=== PATIENT | male | born 1965 | race Caucasian/White ===

== ENCOUNTER 2016-04-27 12:25 | Inpatient (IN) | payer OTHER ==
[~2016-04-27] VITALS: Ht 177.8 cm; Wt 65.3 kg
--- NOTE | ~2016-04-27 | CON ---
[place], [place] REPORT OF CONSULTATION NAME: CHINO PINTO UNIT #: [id number] ROOM: 416 DOCTOR: MANDA CMGALLO BIRTHDATE: [birth year] DOS: 04/28/2016 REASON FOR CONSULTATION: Shortness of breath. HISTORY OF PRESENT ILLNESS: The patient is a 50-year-old gentleman, history of hypothyroidism, alcoholic gastritis, came to the Emergency Room with progressive shortness of breath for a few days and he was admitted to the hospital and Cardiology was consulted for further evaluation. He has history of alcoholic use, had recent upper endoscopy, showed alcoholic gastritis and some hyperplastic gastric polyps. He denies any palpitations/exertional chest pain. No PND, no orthopnea. No edema. No dizziness or syncope. No nausea, vomiting, diarrhea. No headache. No blurred vision or double vision. No hematuria or dysuria. No tingling, numbness, or weakness. His only complaint is mild exertional dyspnea. REVIEW OF SYSTEMS: Review of 8 systems negative. PAST MEDICAL HISTORY: 1. Hypothyroidism. 2. Alcoholic gastritis. 3. History of alcohol use. 4. Acne rosacea. SOCIAL HISTORY: The patient does not smoke, but does drink heavily, mostly beer. No illicit drug abuse. FAMILY HISTORY: Noncontributory. No family history of premature coronary artery disease or hypertension. ALLERGIES: Reviewed. HOME MEDICATIONS: Reviewed. PAST SURGICAL HISTORY: No history of major surgeries. PHYSICAL EXAMINATION: GENERAL: The patient is alert, oriented, in no acute distress. VITAL SIGNS: Stable. HEENT: Pupils are round and equal. No jaundice. Tongue was moist and pharynx was clear. NECK: Supple. No distended neck veins. No carotid bruit. CHEST: Symmetrical, nontender. LUNGS: Clear to auscultation bilaterally. HEART: Regular rhythm. No S3. Grade 1/6 systolic murmur. ABDOMEN: Benign, nontender. Bowel sounds normal. EXTREMITIES: Showed trace edema. SKIN: Warm and dry. No cyanosis, no clubbing. Distal pulses are palpable. NEUROLOGIC: The patient is alert and oriented. No focal neurologic deficit. RECTAL: Deferred. GENITOURINARY: Deferred. [place], [place] REPORT OF CONSULTATION NAME: CHINO PINTO UNIT #: [id number] ROOM: [facility] DOCTOR: MANDA CM,GALLO BIRTHDATE: [birth year] PSYCHIATRIC: The patient is alert, oriented with good mood and affect. REVIEW OF THE DIAGNOSTIC TESTS: The EKG rhythm strips and labs reviewed. IMPRESSION: 1. Mild exertional dyspnea, clinically no acute heart failure. 2. Hypothyroidism. 3. Multiple pulmonary nodules in the left upper lobe per CT scan. 4. Alcoholic gastritis. 5. Alcohol abuse. RECOMMENDATIONS: 1. We will schedule for exercise nuclear stress test to rule out underlying ischemia. 2. Check 2D echo for LV function and valvular function. Further recommendations will be based on his above tests. The patient was counseled to quit drinking. Thank you, Dr. Brewster, for asking us to evaluate the patient and we will follow the case along with you. GALLO HOLMAN MD CM:CONSTR:REPORT OF CONSULTATION 0809 04/29/16 1012 interface
--- NOTE | ~2016-04-27 | ST ---
[place], [place] EXERCISE STRESS TEST REPORT [facility] [id number] UNIT #: [id number] ROOM: 416 DOCTOR: MANDA CM,GALLO BIRTHDATE: [birth year] DOS: 04/29/2016 REASON FOR TEST: Chest pain. REFERRING PHYSICIAN: Dr. Rochelle Brewster. PHYSICAL EXAMINATION NECK: Supple. LUNGS: Clear anteriorly. HEART: Regular rhythm. PROTOCOL: Kelby protocol. Total stress time 6 minutes. Maximum heart rate 145, which is 86% of target heart rate, total mets 7.2 mets. Peak blood pressure 134/78, adequate response. Ramey treadmill score of +6. Symptoms: The patient is chest pain free. EKG: Resting EKG showed sinus rhythm. Stress EKG showed inferior leads T inversion. CONCLUSION: Clinically, the patient is chest pain free. EKG: There is T-wave inversion noted in the inferior leads. POST-STRESS COMPLICATIONS: None. GALLO HOLMAN MD CM:STRESS:EXERCISE STRESS TEST REPORT 1300 [id number] GALLO HOLMAN MD
--- NOTE | ~2016-04-27 | CON ---
[place], [place] REPORT OF CONSULTATION NAME: CHINO PINTO [facility] #: [id number] UNIT #: [id number] ROOM: 416 DOCTOR: LISBET GARCÍA MDAUTUMN BIRTHDATE: [birth year] DOS: 04/28/2016 PULMONARY CONSULTATION EVALUATION AND MANAGEMENT CONSULTATION REQUESTED BY: Dr. Rochelle Brewster. REASON FOR CONSULTATION: For assessment of symptoms of shortness of breath. HISTORY OF PRESENT ILLNESS: A 50-year-old white male who has presented to the hospital. The patient was complaining of shortness of breath, which was occurring at his work. The patient stated that he has been getting shortness of breath and not able to do his job for this patient because of shortness of breath. The patient came into the Emergency Room where he has been assessed. The patient had a CTA of the chest done for this patient as well on admission, which does not show evidence of pulmonary embolism. The patient stated shortness of breath essentially remains the same for the patient of yesterday. He denies any symptoms of acute chest pain. He has been noted with some symptoms of coughing with intermittent sputum expectoration. Denies any symptoms of wheezing. Denies any symptoms of edema or pain of the lower extremities. REVIEW OF SYSTEMS: CONSTITUTIONAL SYMPTOMS: Denies fatigue, tiredness, fever or chills. EYES: Denies any burning, redness, or tenderness. EARS, NOSE, AND THROAT SYMPTOMS: No sore throat, hoarseness, otalgia, postnasal drainage. CARDIOVASCULAR SYSTEM: Denies any anginal pain of the patient, palpitations, edema of the ankles or orthopnea. GASTROINTESTINAL SYMPTOMS: Denies nausea, vomiting, diarrhea, abdominal pain, hematemesis, melena, or hematochezia. SKIN: No lesions or rashes. GENITOURINARY SYMPTOMS: No dysuria, suprapubic pain, hematuria. MUSCULOSKELETAL SYMPTOMS: The patient denies any symptoms of acute joint pain, redness, or tenderness. CENTRAL NERVOUS SYSTEM: Denies syncopal episode, seizures, migraine headache, or diplopia. Remaining systems were reviewed with the patient, they were noted all negative. PAST MEDICAL HISTORY: The patient was noted, 1. Hypothyroidism. 2. History of acne rosacea. 3. Hyperplastic gastric polyp for this patient with alcoholic gastritis. SOCIAL HISTORY: The patient was noted nonsmoker, but has been noted with history of alcohol use, sometimes heavily. The patient stated he has not been drinking alcohol for the past 1 week. SURGICAL HISTORY: Essentially noted with upper endoscopy. [place], [place] REPORT OF CONSULTATION [id number] UNIT #: [id number] ROOM: [facility] DOCTOR: AUTUMN GUAJARDO MD BIRTHDATE: [birth year] FAMILY HISTORY: Mother at age of 7474 years old from complications of diabetes and dementia. The dad at age of 7474 years old approximately from unknown medical illness. HOME MEDICATIONS: Noted use of Synthroid, Protonix, and Carafate. PHYSICAL EXAMINATION: GENERAL: This is a 50-year-old male who has been currently noted to be awake and alert at the time of the assessment without any distress. Height was recorded as 5 feet 10 inches, weight of 144 pounds, BMI 20.6. VITAL SIGNS: Normal temperature recorded, respiratory rate of 18-20, heart rate 71-81, blood pressure 106/67-115/66. Intake 1000, output 900 mL, pulse oxygen saturation of the patient on room air was 100% saturation recorded this morning. HEENT: Examination shows head was atraumatic. Eyes nonicterus. NECK: Supple. CARDIOVASCULAR SYSTEM: S1, S2 audible. LUNGS: Noted clear of any wheezing or crackles. ABDOMEN: Flat, soft, nontender. Bowel sounds present. EXTREMITIES: Show no edema, clubbing or cyanosis. CENTRAL NERVOUS SYSTEM: The patient was noted without any gross focal deficit. Cranial nerves 2-12 intact. SKIN: No lesions or rashes. MUSCULOSKELETAL SYMPTOMS: No acute deformities. LABORATORY DATA: PT/PTT yesterday in the Emergency Room normal. CBC yesterday in the Emergency Room essentially noted as hemoglobin 13.3, hematocrit 37.5 minimally decreased, normal WBC count and platelet count. The differentials are noted 4.4%, eosinophils with the ordered differential. PT and PTT yesterday for this patient noted normal. CMP that was done yesterday for the patient noted normal BUN and creatinine, sodium 131. Remaining CMP for the patient was noted grossly normal. The chest x-ray of the patient that was done for the patient 1 view in the Emergency Room does not show any acute pulmonary abnormalities. CT of the chest of the patient was done yesterday for patient as well in the Emergency Room for patient does not show any evidence of pulmonary embolism or major pulmonary arteries. The lung parenchymal view for this patient was noted without any infiltration pleural fluid or finding of congestive heart failure. Scattered cluster of couple of millimeters nodule for the patient was noted in the left upper lobe for this patient as a cluster close to the subpleural distribution to the patient without any other abnormalities noted in the remaining lungs. There were no findings of centrilobular emphysema or other pathologies. IMPRESSION: 1. The patient who had been admitted to the hospital with symptoms of shortness of breath with exertion, etiology is unclear. History of alcohol use for the patient previously to exclude any underlying cardiac problems such as alcohol-induced cardiomyopathy for this patient, coronary artery disease and other remains a risk at his age. At this time, the patient will not be suspected with having any clinical assessment of the patient and physical examination consistent with chronic obstructive pulmonary disease and/or [place], [place] REPORT OF CONSULTATION [facility]: [facility]: [id number] UNIT #: [id number] ROOM: 416 DOCTOR: AUTUMN GUAJARDO MD BIRTHDATE: [birth year] bronchial asthma. 2. Incidental finding of small cluster of subcentimeter pulmonary nodules in the pleural distribution of the left lung for this patient, etiology is unclear, possibly noninfectious etiology for the patient could be considered with possibility of localized infection cannot be completely excluded in that area. PLAN OF TREATMENT: The patient will be recommended symptomatic management at this time. Outpatient assessment of the patient will be suggested after discharge. The nodule of the patient will be monitored with a repeat CT scan of the chest for this patient in approximately 6 months. No further workup to be initiated for the patient at this time during the current hospitalization. Usual care, other supportive therapy, plan of management and care. Thanks for allowing me to participate in the care of this patient. AUTUMN FRAUSTO MD CM:CONSTR:REPORT OF CONSULTATION 1306 04/28/16 2312 interface
--- NOTE | ~2016-04-27 | DS ---
[place], [place] DISCHARGE SUMMARY NAME: CHINO PINTO [facility] #: [id number] UNIT #: [id number] ROOM: 416 DOCTOR: LETICIA DOMINGO MD BIRTHDATE: [birth year] DOS: 04/29/2016 DIAGNOSES: 1. Precordial chest pain. 2. Exertional shortness of breath. 3. CT scan showing pulmonary nodules. He would need to be followed up as an outpatient. 4. Deconditioning from recent gastrointestinal illness. 5. Alcoholic gastritis. 6. Hyperplastic gastric polyps. 7. Hypothyroidism. 8. Acne rosacea. DISCHARGE MEDICATIONS: The patient's medications are the same as on admission. No new prescriptions were given. HOSPITAL COURSE: A 50-year-old presents with complaints of exertional shortness of breath and chest pain. Please refer to H and P for details. After admission, the patient was placed in a monitored floor. No arrhythmias were noted. Consultation with Dr. De Los Santos and Dr. Romero was obtained. The CT of the chest did not show any evidence of PE or pneumonia, but pulmonary nodules were noted. Dr. Romero is going to follow the patient up as an outpatient. The patient does not smoke. The patient also underwent a stress test and an echocardiogram. I do not have the results of the echo. The stress test results showed the patient does not have any reversible perfusion defects, and the patient should be able to go home today and follow up with PCP as an outpatient. The patient is encouraged not to drink any alcohol when discharged. LETICIA DOMINGO MD CM:OSORIO [phone] LETICIA DOMINGO MD 04/29/16 1101 interface
--- NOTE | ~2016-04-27 | WRIGHTHP ---
[place], [place] PATIENT HISTORY AND PHYSICAL EXAM NAME: CHINO PINTO [facility] #: [id number] UNIT #: [id number] ROOM: 416 DOCTOR: LETICIA DOMINGO MD BIRTHDATE: [birth year] DOS: 04/27/2016 HISTORY OF PRESENT ILLNESS: The patient is a 50-year-old patient with complaints of shortness of breath on exertion. The patient states that he has had a hard time walking at work without getting short of breath, so he decided to come into the Emergency Room, was evaluated with a negative CT of the chest because of his heavy alcohol abuse and possible coronary artery disease. The patient was admitted to the hospital. The patient, this morning, does not have any complaints other than continued shortness of breath. The patient denies having any chest pains or palpitations, does not have any abdominal pain, nausea, any emesis. Does not have any fever or chills. PAST MEDICAL HISTORY: Significant for: 1. Hypothyroidism. 2. Acne rosacea. 3. Alcoholic gastritis with hyperplastic gastric polyps where the biopsies were negative. MEDICATIONS: That he is on are levothyroxine 50, Protonix 40, and Carafate 1 g twice a day. SOCIAL HISTORY: Nonsmoker, does drink rather heavily at times. He has not had any alcohol for a week now. PHYSICAL EXAMINATION: GENERAL: He is awake and alert and oriented, evidence of severe acne rosacea on the face. VITAL SIGNS: Blood pressure is 101/64, pulse is 74, respirations 20, temperature 98.3. LUNGS: Diminished breath sounds. No wheezes, rales or rhonchi heard. HEART: Regular. ABDOMEN: Obese, soft, nontender. EXTREMITIES: Without any edema. LABORATORY DATA: CT of the chest shows pulmonary nodules about 6-7 mm in the left upper lobe, multiple, no PE was noted, no pneumonia is seen. Gallbladder shows no evidence of stones. The heart is normal in size. Chest x-ray was unremarkable. Lactic acid is normal. White blood cell count is 6.3, hemoglobin 13.3, hematocrit 37.5, platelets 301. Protime was normal. Comprehensive; glucose 85, BUN 8, creatinine 0.88, sodium 131, potassium 4.2, chloride 95, bicarbonate 23. C-reactive protein 0.60, myoglobin 32. CKs and troponins were normal. ASSESSMENT AND PLAN: 1. Exertional shortness of breath in a person who has had history of alcoholism. We will need to rule out coronary artery disease. Cardiology consultation will be obtained for a stress test this morning. 2. Exertional shortness of breath with CT showing pulmonary nodules. Dr. Romero has been consulted. The patient states that he never smoked. The patient does not have any evidence of bronchospasm, so no breathing treatments have been [place], [place] PATIENT HISTORY AND PHYSICAL EXAM [id number] #: [id number] ROOM: [facility] DOCTOR: LETICIA DOMINGO MD BIRTHDATE: [birth year] ordered. 3. Alcoholic gastritis. Continue medications. We will start him on a diet once the stress is done. LETICIA DOMINGO MD CM:HISPHYS:PATIENT HISTORY AND PHYSICAL EXAMINATION [id number] LETICIA DOMINGO MD 04/28/16 0859 interface
--- NOTE | ~2016-04-27 | PR ---
[place], [place] PROGRESS NOTE [id number] UN[facility] #: [id number] ROOM: 416 DOCTOR: LISBET GARCÍA MD,AUTUMN BIRTHDATE: [birth year] DOS: 04/29/2016 PULMONARY PROGRESS NOTE SUBJECTIVE: He has been noted asymptomatic without any acute new respiratory complaints. The patient had a cardiac stress test, which was completed yesterday as well. The patient was assessed by the Cardiology Services as well. The stress test of the patient was noted with normal exercise stress test. OBJECTIVE: VITAL SIGNS: Shows normal temperature, respiratory rate 18, heart rate 68, blood pressure ____. The pulse oxygen saturation on room air was 97% saturation. HEENT: Showed no acute change. NECK: Supple. CARDIOVASCULAR: S1, S2 audible. LUNGS: Noted clear without any wheezing or crackles. ABDOMEN: Soft, nontender. LABORATORY DATA: No new labs were done today. IMPRESSION: 1. The patient with subcentimeter bilateral pulmonary nodule, subpleural distribution, etiology unclear for this patient in the left upper lobe. 2. Shortness of breath of the patient, exact etiology cannot be clearly defined, but does not show any active wheezing or other problems. PLAN OF TREATMENT: The patient could be considered for home discharge with further outpatient comprehensive assessment for the respiratory status will be planned. The pulmonary nodule will be monitored as well. The patient could be seen in the office in the next 2-3 weeks postdischarge. AUTUMN FRAUSTO MD CM:PNTRANS [id number] AUTUMN GARCÍA MD 04/30/16 0237 interface
[~2016-04-27 12:25] MED LIST: CIPROFLOXACIN500 M4 PO; CLARITIN10 MG PO; COMPAZINE10 MG PO; DAYPRO600 M1 PO; LEVOTHYROXIN0.025 M1 PO; LEVOTHYROXIN0.025 MG PO; PANTOPRAZOLE SO40 MG PO; PROTONIX40 MG PO; ROBAXIN750 MG PO; SULFACETAMIDE TP; Synthroid,Levo50 MCG PO; VITAMIN B-11 TAB PO; VITAMIN D50000 I3 PO; ZITHROMAX Z PA250 MG PO
[2016-04-27] MEDS ORDERED: SEPTRA DS 800 M1 TAB PO (12:33)
[2016-04-27] MEDS ORDERED: CARAFATE1 GM/10 ML PO (12:34)
[2016-04-27 12:35] VITALS: BP 115/66
[2016-04-27 13:23] LABS: BASO # 0.1 10*3/uL (0.0-0.1); BASO % 2.2 % (0.0-1.0); EOS # 0.3 10*3/uL (0.0-0.4); EOS % 4.4 % (1.0-4.0); HEMATOCRIT 37.5 % (42.0-52.0); HEMOGLOBIN 13.3 g/dl (14.0-18.0); LYMPH # 1.4 10*3/uL (1.3-4.4); LYMPH % 22.4 % (27.0-41.0); MEAN CELL VOLUME 90.8 fl (80.0-94.0); MEAN CORPUSCULAR HGB 32.2 pg (27.0-31.0); MEAN CORPUSCULAR HGB CONC 35.5 g/dl (33.0-37.0); MEAN PLATELET VOLUME 9.3 fl (9.6-12.3); MONO # 0.7 10*3/uL (0.1-1.0); MONO % 11.5 % (3.0-9.0); NEUT # 3.8 10*3/uL (2.3-7.9); NEUT % 59.2 % (47.0-73.0); PLATELET COUNT AUTOMATED 301 10*3/uL (130-400); RED BLOOD COUNT 4.13 10*6/uL (4.50-5.90); RED CELL DISTRI WIDTH 11.7 % (0-14.5); WHITE BLOOD COUNT 6.3 10*3/uL (4.8-10.8)
[2016-04-27 13:34] LABS: PROTHROMBIN TIME 11.1 SECONDS (9.0-12.4)
[2016-04-27 13:41] LABS: ALBUMIN 3.4 gm/dl (3.1-4.5); ALKALINE PHOSPHATASE 56 U/L (45-117); BILIRUBIN, TOTAL 0.4 mg/dl (0.2-1.0); BUN 8 mg/dl (7-24); CARBON DIOXIDE 23 mmol/L (21-32); CHLORIDE 95 mmol/L (98-107); CPK 48 U/L (39-308); EST GLOM FILT AFRICAN AMERICAN > 60 ml/min; GLUCOSE 85 mg/dL (65-99); MAGNESIUM 2.2 mg/dL (1.5-2.1); POTASSIUM 4.2 mmol/L (3.5-5.1); SGOT/AST 16 IU/L (3-35); SGPT/ALT 30 U/L (12-78); SODIUM 131 mmol/L (136-145)
[2016-04-27 13:42] LABS: CKMB < 0.5 ng/ml (0.5-3.6); TROPONIN I < 0.015 ng/ml (<0.045)
[2016-04-27 15:29] VITALS: BP 100/56
[2016-04-27 17:20] VITALS: BP 101/60
[2016-04-27 20:00] VITALS: BP 109/69
[2016-04-28] VITALS: BP 101/64; BP 106/43
[2016-04-28 08:00] VITALS: BP 106/67
[2016-04-28 12:00] VITALS: BP 92/52
[2016-04-28 16:00] VITALS: BP 96/60
[2016-04-28 20:00] VITALS: BP 105/63
[2016-04-29] VITALS: BP 92/52
[2016-04-29 08:00] VITALS: BP 101/60
== END 2016-04-29 09:15 | disposition home or self-care (01) | DRG 313 ==
LOC: ED 12:25 → EDHOLD 15:08 → 4E 15:51
PROVIDERS: Emergency Medicine
PROC: 4A02XM4 Measurement of Cardiac Total Activity, External Approach (ICD-10-PCS; principal; 2016-04-29)
DX: R07.2 Precordial pain (principal); I25.10 Atherosclerotic heart disease of native coronary artery without angina pectoris; K63.5 Polyp of colon; R91.1 Solitary pulmonary nodule; E03.9 Hypothyroidism, unspecified; L71.9 Rosacea, unspecified; R06.02 Shortness of breath; K29.20 Alcoholic gastritis without bleeding; F10.10 Alcohol abuse, uncomplicated; Z83.3 Family history of diabetes mellitus; Z82.0 Family history of epilepsy and other diseases of the nervous system

== ENCOUNTER → 2016-12-18 | Emergency (ER) | payer OTHER ==
[~2016-12-18] VITALS: Ht 177.8 cm; Wt 63.5 kg
[~2016-12-18] MED LIST changes: +'PARAFON FORTE500 M1 PO; +CARAFATE1 GM/10 ML PO; +NAPROSYN500 MG PO; +SEPTRA DS 800 M1 TAB PO
== END ==
LOC: ED 10:53
DX: S13.4XXA Sprain of ligaments of cervical spine, initial encounter (principal); V89.2XXA Person injured in unspecified motor-vehicle accident, traffic, initial encounter; Y93.89 Activity, other specified; Y92.410 Unspecified street and highway as the place of occurrence of the external cause; Y99.8 Other external cause status; Z79.899 Other long term (current) drug therapy

== ENCOUNTER 2021-05-16 12:48 | Inpatient (IN) | payer OTHER ==
[~2021-05-16] VITALS: Ht 177.8 cm; Wt 65.0 kg
[2021-05-16 13:05] VITALS: BP 112/74
[2021-05-16 13:37] LABS: HEMATOCRIT 37.5 % (42.0-52.0); MANUAL DIFF REFLEX YES; MEAN CELL VOLUME 90.6 fl (80.0-94.0); MEAN CORPUSCULAR HGB 33.1 pg (27.0-31.0); MEAN CORPUSCULAR HGB CONC 36.5 g/dl (33.0-37.0); MEAN PLATELET VOLUME 10.4 fl (9.6-12.3); PLATELET COUNT AUTOMATED 148 10*3/uL (130-400); RED BLOOD COUNT 4.14 10*6/uL (4.50-5.90); RED CELL DISTRI WIDTH 11.3 % (0-14.5); WHITE BLOOD COUNT 3.3 10*3/uL (4.8-10.8)
[2021-05-16 13:56] LABS: ALKALINE PHOSPHATASE 42 U/L (45-117); BUN 6 mg/dl (7-24); CHLORIDE 91 mmol/L (98-107); CREATININE 0.61 mg/dL (0.70-1.30); POTASSIUM 3.7 mmol/L (3.5-5.1); SGOT/AST 97 IU/L (3-35); SGPT/ALT 132 U/L (12-78); SODIUM 122 mmol/L (136-145)
[2021-05-16 14:07] LABS: ATYPICAL LYMPHS 3 % (0-0); PLATELET SUFFICIENCY NORMAL (NORMAL); TOTAL CELLS COUNTED 100 #CELLS
[2021-05-16] MEDS ORDERED: 'CIPRO500 M1 PO (14:58)
[2021-05-16 16:00] VITALS: BP 106/52
[2021-05-16 20:00] VITALS: BP 120/76
[2021-05-17] VITALS: BP 107/68
[2021-05-17 05:54] LABS: BUN 9 mg/dl (7-24); CHLORIDE 98 mmol/L (98-107); CREATININE 0.67 mg/dL (0.70-1.30); SODIUM 128 mmol/L (136-145)
[2021-05-17 06:21] LABS: POTASSIUM 4.9 mmol/L (3.5-5.1)
[2021-05-17 08:00] VITALS: BP 124/72
[2021-05-17 12:00] VITALS: BP 156/78; BP 92/70
[2021-05-17 16:00] VITALS: BP 106/82
[2021-05-17 20:00] VITALS: BP 122/71
[2021-05-18] VITALS: BP 124/83
[2021-05-18 06:02] LABS: BASO % 0.2 % (0.0-1.0); EOS # 0.1 10*3/uL (0.0-0.4); EOS % 1.7 % (1.0-4.0); HEMATOCRIT 37.6 % (42.0-52.0); LYMPH # 1.6 10*3/uL (1.3-4.4); MEAN CELL VOLUME 92.4 fl (80.0-94.0); MEAN CORPUSCULAR HGB 32.9 pg (27.0-31.0); MEAN CORPUSCULAR HGB CONC 35.6 g/dl (33.0-37.0); MEAN PLATELET VOLUME 10.9 fl (9.6-12.3); MONO # 0.4 10*3/uL (0.1-1.0); MONO % 8.5 % (3.0-9.0); NEUT # 2.1 10*3/uL (2.3-7.9); NEUT % 50.4 % (47.0-73.0); PLATELET COUNT AUTOMATED 165 10*3/uL (130-400); RED BLOOD COUNT 4.07 10*6/uL (4.50-5.90); RED CELL DISTRI WIDTH 11.3 % (0-14.5); WHITE BLOOD COUNT 4.1 10*3/uL (4.8-10.8)
[2021-05-18 06:03] LABS: BUN 6 mg/dl (7-24); CHLORIDE 96 mmol/L (98-107); CREATININE 0.61 mg/dL (0.70-1.30); POTASSIUM 4.5 mmol/L (3.5-5.1); SODIUM 126 mmol/L (136-145)
[2021-05-18 08:00] VITALS: BP 138/85
[2021-05-18 12:00] VITALS: BP 155/90
[2021-05-18 16:00] VITALS: BP 120/73
[2021-05-18 16:26] LABS: BUN 6 mg/dl (7-24); CHLORIDE 97 mmol/L (98-107); CREATININE 0.71 mg/dL (0.70-1.30); SODIUM 128 mmol/L (136-145)
[2021-05-18 16:31] LABS: POTASSIUM 3.5 mmol/L (3.5-5.1)
[2021-05-18 19:39] LABS: URINE CHLORIDE, RANDOM 61 mmol/L
[2021-05-18 20:00] VITALS: BP 130/71
[2021-05-19] VITALS: BP 124/68
[2021-05-19 06:05] LABS: BUN 7 mg/dl (7-24); CHLORIDE 99 mmol/L (98-107); CREATININE 0.78 mg/dL (0.70-1.30)
[2021-05-19 06:25] LABS: SODIUM 130 mmol/L (136-145)
[2021-05-19 06:35] LABS: POTASSIUM 4.6 mmol/L (3.5-5.1)
[2021-05-19] MEDS ORDERED: ATIVAN0.5 MG PO (10:07)
[2021-05-19] MEDS ORDERED: SODIUM CHLORIDE1 GM PO (10:12)
[2021-05-19] MEDS ORDERED: Synthroid,Levo25 MCG PO (10:28)
== END 2021-05-19 12:00 | disposition home or self-care (01) | DRG 775 ==
LOC: ED 12:48 → 4E 14:26 → EDHOLD 14:26 → 4E 14:59
PROVIDERS: Internal Medicine Nephrology; Student in an Organized Health Care Education/Training Program; ADMIT Internal Medicine; ATTEND Internal Medicine
DX: F10.239 Alcohol dependence with withdrawal, unspecified (principal); J01.90 Acute sinusitis, unspecified; E87.1 Hypo-osmolality and hyponatremia; B96.89 Other specified bacterial agents as the cause of diseases classified elsewhere; I10 Essential (primary) hypertension; E03.9 Hypothyroidism, unspecified; F33.1 Major depressive disorder, recurrent, moderate; J20.9 Acute bronchitis, unspecified; Z79.899 Other long term (current) drug therapy

== ENCOUNTER → 2024-05-29 | Outpatient (CLI) | payer OTHER ==
[~2024-05-29] MED LIST changes: +'CIPRO500 M1 PO; +ATIVAN0.5 MG PO; +DOXYCYCLINE HYC50 MG PO; +IOHEXOL 300 MG/ML 100 ML VIAL IV ONE; +IOHEXOL 300 MG/ML 100 ML VIAL ONE; +LEVOTHYROXINE50 MCG PO; +LEVOTHYROXINE75 MCG PO; +LOTEMAX OP; +NATURE'S BLEND F1 MG PO; +SODIUM CHLORI1000 M5 PO; +SODIUM CHLORIDE1 GM PO; +Synthroid,Levo25 MCG PO
== END | disposition home or self-care (01) ==
LOC: CT 07:34
PROVIDERS: ATTEND Internal Medicine Critical Care Medicine
DX: Z01.818 Encounter for other preprocedural examination (principal); R91.8 Other nonspecific abnormal finding of lung field; J45.50 Severe persistent asthma, uncomplicated; J98.4 Other disorders of lung; Z68.1 Body mass index [BMI] 19.9 or less, adult

== ENCOUNTER → 2024-10-04 | Outpatient (CLI) | payer OTHER ==
[~2024-10-04] MED LIST changes: -IOHEXOL 300 MG/ML 100 ML VIAL IV ONE; -IOHEXOL 300 MG/ML 100 ML VIAL ONE
== END ==
LOC: RAD 15:35
PROVIDERS: ATTEND Internal Medicine
DX: M76.52 Patellar tendinitis, left knee (principal); M76.51 Patellar tendinitis, right knee; M15.0 Primary generalized (osteo)arthritis

== ENCOUNTER → 2024-11-13 | Outpatient (CLI) | payer OTHER ==
[2024-11-13 10:17] LABS: ACT PARTIAL THROMBO TIME 23.6 SECONDS (20.0-32.1)
[2024-11-13 10:26] LABS: BUN 13 mg/dl (9-23); SGPT/ALT 47 U/L (5-49)
== END | disposition home or self-care (01) ==
LOC: US 10-25 14:30 → LAB 09:18 → US 09:30
PROVIDERS: Internal Medicine; ATTEND Orthopaedic Surgery
DX: N28.1 Cyst of kidney, acquired (principal); R74.01 Elevation of levels of liver transaminase levels; Z79.1 Long term (current) use of non-steroidal anti-inflammatories (NSAID)

== ENCOUNTER 2024-11-14 12:23 | Emergency (ER) | payer OTHER ==
[~2024-11-14] VITALS: Wt 63.5 kg
[2024-11-14] MEDS ORDERED: SODIUM CHLORIDE 0.9% 1,000 ML IV ONE (12:35)
[2024-11-14 12:50] LABS: BASO # 0.1 10*3/uL (0.0-0.1); BASO % 0.5 % (0.0-1.0); EOS # 0.2 10*3/uL (0.0-0.4); EOS % 1.7 % (1.0-4.0); MEAN CELL VOLUME 102.5 fl (80.0-94.0); MEAN CORPUSCULAR HGB 37.0 pg (27.0-31.0); MEAN PLATELET VOLUME 8.7 fl (9.6-12.3); MONO # 1.1 10*3/uL (0.1-1.0); MONO % 10.8 % (3.0-9.0); NEUT # 7.8 10*3/uL (2.3-7.9); NEUT % 76.3 % (47.0-73.0); NUCLEATED RED BLOOD CELL 0.0 % (0.0-0.0); NUCLEATED RED BLOOD CELL 0.0 10*3/uL (0.0-0.0); PLATELET COUNT AUTOMATED 218 10*3/uL (130-400); RED CELL DISTRI WIDTH 13.5 % (0-14.5)
[2024-11-14 13:36] LABS: BUN 16 mg/dl (9-23)
== END 2024-11-14 13:51 | disposition home or self-care (01) ==
LOC: ED 12:23
PROVIDERS: Nurse Practitioner Family
DX: E87.1 Hypo-osmolality and hyponatremia (principal); F20.9 Schizophrenia, unspecified; F32.A Depression, unspecified; Z88.8 Allergy status to other drugs, medicaments and biological substances; Z87.19 Personal history of other diseases of the digestive system